=== PATIENT | female | born 1935 | race African-American/Black ===

== ENCOUNTER 2021-03-13 13:18 | Inpatient (IN) | payer MEDICARE ==
[~2021-03-13] VITALS: Ht 165.1 cm; Wt 54.9 kg
--- NOTE | 2021-03-13 14:22 | NUR ---
LUISSatya CEDILLO "was out shopping w/family lost balance and fell now has left shoulder pain. On room air, breathing evenly and unlabored. connected to the monitor and pulse ox. kept comfortable, will continue to monitor accordingly.
--- NOTE | 2021-03-13 14:22 | NUR ---
Dr. Dowling at bedside for eval.
--- NOTE | 2021-03-13 14:31 | NUR ---
kerline at bedside for x-ray.
[2021-03-13] MEDS ORDERED: ACETAMINOPHEN 325 MG TABLET ONE (14:42)
--- NOTE | 2021-03-13 14:43 | NUR ---
wheeled patient to ct accompanied by kerline.
[2021-03-13] MEDS ORDERED: ACETAMINOPHEN 325 MG TABLET PO ONE (15:00)
[2021-03-13] MEDS ORDERED: DONE10TA44 PO (15:21)
[2021-03-13] MEDS ORDERED: ACET-2605 PO (15:21)
[2021-03-13] MEDS ORDERED: MEMA5TAB PO (15:21)
[2021-03-13] MEDS ORDERED: AMLO10TA4 PO (15:21)
--- NOTE | 2021-03-13 15:57 | NUR ---
covid swab collected and sent to lab.
--- NOTE | 2021-03-13 16:20 | NUR ---
EPIC PAGED. AWAITING CALL BACK FRM DR MAX.
[2021-03-13] MEDS ORDERED: ACETAMINOPHEN 325 MG TABLET PO PRN (19:00)
[2021-03-13] MEDS ORDERED: MAGNESIUM HYDROXIDE 30 ML UDC PO PRN (19:00)
[2021-03-13] MEDS ORDERED: MORPHINE SULFATE INJ 2 MG/ML DISP.SYRIN IV PRN (19:00)
[2021-03-13] MEDS ORDERED: ONDANSETRON HCL/PF 4 MG/2 ML VIAL IVP PRN (19:00)
[2021-03-13] MEDS ORDERED: MAG HYDROX/AL HYDROX/SIMETH 30 ML UDC PO PRN (19:00)
[2021-03-13 19:18] LABS: BASOPHILS % (AUTO) 0.2 % (0.0-2.0); EOSINOPHILS % (AUTO) 0.2 % (0.0-6.0); HEMATOCRIT 38 % (33-45); HEMOGLOBIN 12.5 g/dL (11.5-14.8); LYMPHOCYTES # (AUTO) 0.9 K/uL (0.8-4.8); LYMPHOCYTES % (AUTO) 7.6 % (20.0-44.0); MEAN CORPUSCULAR HGB CONC 33 g/dl (31.0-36.0); MEAN CORPUSCULAR VOLUME 95 fL (82-100); MONOCYTES # (AUTO) 0.5 K/uL (0.1-1.30); MONOCYTES % (AUTO) 4.2 % (2.0-12.0); NEUTROPHILS # (AUTO) 10.2 K/uL (1.8-8.9); NEUTROPHILS % (AUTO) 87.8 % (43.0-81.0); PLATELET COUNT (AUTO) 227 K/uL (150-450); RED BLOOD CELL COUNT(AUTO) 4.02 MIL/uL (4.0-5.2); WHITE BLOOD COUNT (AUTO) 11.7 K/uL (4.3-11.0)
--- NOTE | 2021-03-13 19:27 | NUR ---
GOT BED 103
[2021-03-13 19:29] LABS: CALCIUM, SERUM 8.9 mg/dL (8.5-10.1); CREATININE 1.2 mg/dL (0.6-1.3); POTASSIUM 4.7 mmol/L (3.5-5.1)
--- NOTE | 2021-03-13 20:35 | NUR ---
REPORT GIVEN TO SOFÍA
[2021-03-13 20:45] VITALS: BP 167/76
--- NOTE | 2021-03-13 21:00 | NUR ---
pt transferred to [facility] for continuation of care. pt transferred in stable condition per acls protocol
[2021-03-13] MEDS: DONEPEZIL 5 MG TABLET PO SCH (22:33)
[2021-03-14] VITALS: BP 139/75
--- NOTE | 2021-03-14 00:44 | NUR ---
RN NOTES ASKED PATIENT WHAT HER PAIN LEVEL IS USING NUMERICAL SCALE. PATIENT STATES 10/10 PAIN AT THE MOMENT ON LEFT SHOULDER. ASSISTED WITH REPOSITIONING WITH NO RELIEF. PATIENT REQUESTING PAIN MEDICATION. ADMINISTERED TYLENOL 650 MG PER ORDER. WILL CONTINUE TO MONITOR.
[2021-03-14 04:00] VITALS: BP 130/70
[2021-03-14 06:17] LABS: BASOPHILS % (AUTO) 0.4 % (0.0-2.0); EOSINOPHILS % (AUTO) 1.2 % (0.0-6.0); HEMATOCRIT 33 % (33-45); HEMOGLOBIN 11.2 g/dL (11.5-14.8); LYMPHOCYTES # (AUTO) 1.3 K/uL (0.8-4.8); LYMPHOCYTES % (AUTO) 16.6 % (20.0-44.0); MEAN CORPUSCULAR HGB CONC 34 g/dl (31.0-36.0); MEAN CORPUSCULAR VOLUME 93 fL (82-100); MONOCYTES # (AUTO) 0.6 K/uL (0.1-1.30); MONOCYTES % (AUTO) 8.4 % (2.0-12.0); NEUTROPHILS # (AUTO) 5.5 K/uL (1.8-8.9); NEUTROPHILS % (AUTO) 73.4 % (43.0-81.0); PLATELET COUNT (AUTO) 247 K/uL (150-450); RED BLOOD CELL COUNT(AUTO) 3.58 MIL/uL (4.0-5.2); WHITE BLOOD COUNT (AUTO) 7.5 K/uL (4.3-11.0)
[2021-03-14 06:34] LABS: CALCIUM, SERUM 9.4 mg/dL (8.5-10.1); CREATININE 1.1 mg/dL (0.6-1.3); MAGNESIUM 2.2 mg/dL (1.8-2.4); POTASSIUM 4.4 mmol/L (3.5-5.1)
--- NOTE | 2021-03-14 06:49 | NUR ---
RN NOTES NO SIGNIFICANT CHANGES DURING SHIFT. PATIENT AOX2. EASILY AROUSABLE. ABLE TO MAKE NEEDS KNOWN. BREATHING EVEN AN UNLABORED. NO SOB NOTED. ON ROOM AIR, WITH SATURATION OF 98 PERCENT. HOB ELEVEATED 35 DEGREES. SKIN IS WARM AND DRY TO TOUCH. AFEBRILE. PATIENT NOTED WITH RIGHT DORSAL HAND IV ACCESS 18G, PATENT. PATIENT NOTED WITH LEFT UPPER EXTREMITY PAIN 10/10 AND WEAKNESS. PATIENT STATES "IT FEELS SORE". PATIENT PAIN LEVEL DECREASED TO 5/10 DURING REEVALUATION. ON BED REST. ALL NEEDS ATTENDED. CALL LIGHT WITHIN REACH.
--- NOTE | 2021-03-14 07:25 | NUR ---
RN NOTES; RECEIVED PT SLEEPING. PT A/OX3, PT TOLERATING RA SAT @ 98%. PT NOTED TO HAVE L ARM WEAKNESS. NO SOB NOTED, NO DISTRESS NOTED. ALL SAFETY MEASURES RENDERED, BED IN THE LOWEST POS. BED LOCKED WITH CALL LIGHT WITHIN REACH. WILL CONTINUE TO MONITOR.
[2021-03-14 08:00] VITALS: BP 140/72
[2021-03-14] MEDS: MEMANTINE HCL 5 MG TABLET PO SCH ×2 (08:21→16:02)
[2021-03-14] MEDS: AMLODIPINE BESYLATE 10 MG TABLET PO SCH (08:21)
[2021-03-14] MEDS: ACETAMINOPHEN ES 500 MG TABLET PO SCH ×2 (08:21→16:02)
[2021-03-14 12:00] VITALS: BP 124/70
[2021-03-14 16:00] VITALS: BP 141/68
--- NOTE | 2021-03-14 18:22 | NUR ---
RN CLOSING NOTES; PT IN BED SLEEPING.PT IS A/OX3. PT ENJOYED VISITING WITH HER DAUGHTER. CONTINUE NEUROCHECKS AND MONITOR. PT KEPT CLEAN, DRY, AND COMFORTABLE. NO SIGNIFICANT CHANGES IN PT HEALTH. ALL SAFETY MEASURES RENDERED, BED IN LOWEST POS. LOCKED, WITH CALL LIGHT WITHIN REACH. ENDORSED TO RADIOISOTOPE TECHNICIAN RN IN STABLE CONDITION.
--- NOTE | 2021-03-14 19:30 | NUR ---
ARINA RN NOTE PT IN BED AWAKE. A/O X 2-3 , NO SOB, NO DISTRESS OR DISCOMFORT NOTED. DENIES PAIN. PT ON NEURO CHECK. ON TELE MONITOR SR WITH OCCASIONAL PVC'S HR 74. PT FOREHEAD REMAIN WITH HEMATOMA AND SWOLLEN. RT HAND SL LOOK LOOSE READJUSTED IT WITH TAPE AND FLUSH IT WITH NS. NO S/S OF INFILTRATION NOTED. REMINDED PT TO USE CALL LIGHT IF WANT ANYTHING OR WANTS TO GO BATHROOM. PT STATES "OK". SIDE RAILS UP X 3 AND CALL LIGHT WITHIN REACH. BED ALARM ON. CONTINUE TO MONITOR HER CLOSELY. VSS.
[2021-03-14 20:00] VITALS: BP 116/65
[2021-03-14] MEDS: DONEPEZIL 5 MG TABLET PO SCH (21:57)
[2021-03-15] VITALS: BP 132/76
[2021-03-15 04:00] VITALS: BP 137/73
--- NOTE | 2021-03-15 06:46 | NUR ---
ARINA RN NOTE NO CHANGE IN CONDITION. PT SLEPT WELL. UNSTEADY GAIT AND NEED ASSISTANCE WHEN GOING TO BATHROOM, WILL ENDORSE TO DAY SHIFT NURSE FOR CONTINUE TO CARE.
--- NOTE | 2021-03-15 07:18 | NUR ---
RN OPENING NOTES; RECEIVED PT SLEEPING. PT A/OX3, PT TOLERATING RA SAT @ 100%. PT NOTED TO HAVE L ARM WEAKNESS. PT HAS 0 SOB OR DISTRESS NOTED. 0 C/O PAIN AT THIS TIME. ALL SAFETY MEASURES RENDERED, BED IN THE LOWEST POS. BED LOCKED WITH CALL LIGHT WITHIN REACH. WILL CONTINUE TO MONITOR.
[2021-03-15 08:00] VITALS: BP 116/59
[2021-03-15] MEDS: ACETAMINOPHEN ES 500 MG TABLET PO SCH (08:13)
[2021-03-15] MEDS: AMLODIPINE BESYLATE 10 MG TABLET PO SCH (08:14)
[2021-03-15] MEDS: MEMANTINE HCL 5 MG TABLET PO SCH (08:14)
[2021-03-15 12:00] VITALS: BP 106/55
--- NOTE | 2021-03-15 13:33 | NUR ---
RN NOTES; PT D/C TO HOME IN STABLE CONDITION. PT DC WITH HOME HEALTH. DC INSTRUCTIONS GIVEN AND EXPLAINED TO PT. PT VERBALIZED UNDERSTANDING. ALL PAPERWORK SIGNED AND COMPLETED. ALL BELONGINGS SENT. PT ESCORTED TO THE LOBBY VIA WHEEL CHAIR BY RANI TO MEET WITH DAUGHTER. PT LEFT VIA PRIVATE VEHICLE.
== END 2021-03-15 13:44 | disposition home health service (06) | DRG 85 ==
LOC: ER 13:22 → TELE1 19:39 → TELE-TD 20:12 → TELE1 03-15 08:04
PROVIDERS: ADMIT Internal Medicine; ATTEND Internal Medicine
DX: S06.5X0A Traumatic subdural hemorrhage without loss of consciousness, initial encounter (principal); G93.41 Metabolic encephalopathy; I10 Essential (primary) hypertension; F03.90 Unspecified dementia, unspecified severity, without behavioral disturbance, psychotic disturbance, mood disturbance, and anxiety; W19.XXXA Unspecified fall, initial encounter; Y93.9 Activity, unspecified; Y92.59 Other trade areas as the place of occurrence of the external cause; Z20.822 Contact with and (suspected) exposure to COVID-19; R40.2362 Coma scale, best motor response, obeys commands, at arrival to emergency department; R40.2142 Coma scale, eyes open, spontaneous, at arrival to emergency department; R40.2252 Coma scale, best verbal response, oriented, at arrival to emergency department
CPT/HCPCS: 36415; 70450-TC; 70486-TC; 71045-TC; 72125-TC; 73030-TC; 80048-TC; 83735-TC; 84100-TC; 85025-TC; 85610-TC; 87081-TC; 97116-TC; 97530-TC; C9803; G0378